=== PATIENT | female | born 1980 | race Caucasian/White ===

== ENCOUNTER 2019-04-15 08:59 | Emergency (ER) | payer SELFPAY ==
[~2019-04-15] VITALS: Ht 162.6 cm; Wt 54.4 kg
[2019-04-15 09:03] VITALS: BP 98/61
[2019-04-15] MEDS ORDERED: SULF1TAB24 PO (09:55)
[2019-04-15] MEDS ORDERED: ACET-704 PO (09:55)
--- NOTE | 2019-04-15 09:55 | PHYS DOC ---
Past Medical History Past Medical History: Other Additional Past Medical Histor: "GETS BOILS" Past Surgical History: Tubal ligation, Other Additional Past Surgical Histo: COLPOSCOPY Alcohol Use: Rarely Drug Use: None Adult General Chief Complaint Chief Complaint: ABSCESS HPI HPI Patient is a 38-year-old female who presents with complaint of tender, swollen area on her right upper back that she states is an abscess. Patient states has been getting purulent drainage from the area for the last few days but she has not been able to get any out for the last 24 hours. She denies any fever. She states that is just not getting any better and she is having a lot of pain as sociated with it. She rates pain 8 out of 10.[] Review of Systems Review of Systems Constitutional: Denies fever or chills [] Respiratory: Denies cough or shortness of breath [] Cardiovascular: No additional information not addressed in HPI [] Integument: Positive abscess[] Current Medications Current Medications Current Medications Medications (Trade) Dose Ordered Sig/Arun Start Time Stop Time Status Last Admin Dose Admin Clindamycin Phosphate (Cleocin Im) 600 mg 1X ONCE 04/15/19 10:00 04/15/19 10:01 DC 04/15/19 09:52 600 MG Allergies Allergies Allergies Coded Allergies Type Severity Reaction Last Updated Verified amoxicillin Allergy Intermediate RASH,HANDS SWELL 04/15/19 Yes Physical Exam Physical Exam Constitutional: Well developed, well nourished, no acute distress, non-toxic appearance. [] Cardiovascular:Heart rate regular rhythm, no murmur [] Lungs & Thorax: Bilateral breath sounds clear to auscultation [] Skin: Right upper back demonstrates tender, swollen, indurated area with surrounding erythema to the right upper back, measuring approximately 4 cm in diameter, consistent with abscess. [] Neurologic: Alert and oriented X 3, no focal deficits noted. [] Current Patient Data Vital Signs Vital Signs Date Time Temp Pulse Resp B/P (MAP) Pulse Ox O2 Delivery O2 Flow Rate FiO2 04/15/19 09:03 98.2 82 16 98/61 (73) 98 Room Air 98.2 EKG EKG [] Radiology/Procedures Radiology/Procedures [] Course & Med Decision Making Course & Med Decision Making Pertinent Labs and Imaging studies reviewed. (See chart for details) Abscess Incision and Drainage with irrigation by me: Location: Right upper back Anesthesia: Local 1% Lidocaine Technique: Irrigated. Disrupted loculations w/ instrumentation Packing: None Complications: Neurovascularly intact post procedure 48 hour wound check. Scar minimization instructions given. Fabián Disclaimer Fabián Disclaimer This electronic medical record was generated, in whole or in part, using a voice recognition dictation system. Departure Departure Impression: Primary Impression: Abscess Disposition: HOME, SELF-CARE Condition: STABLE Referrals: NO PCP (PCP) Patient Instructions: Abscess Scripts Acetaminophen With Codeine (TYLENOL WITH CODEINE #3 TABLET) 1 Each Tablet 1 TAB PO PRN Q6HRS PRN for PAIN, #12 TAB Prov: XIMENA WATSON Jr. DO 04/15/19 Sulfamethoxazole/Trimethoprim (BACTRIM DS TABLET) 1 Each Tablet 1 TAB PO BID for 10 Days, #20 TAB 0 Refills Prov: XIMENA WATSON Jr. DO 04/15/19 XIMENA WATSON Jr. DO Apr 15, 2019 09:55
[2019-04-15] MEDS ORDERED: CLINDAMYCIN IM 600 MG/4 ML VIAL. IM ONE (10:00)
== END 2019-04-15 10:21 | disposition home or self-care (01) ==
LOC: ER 08:59
DX: L02.212 Cutaneous abscess of back [any part, except buttock and flank] (principal); Z88.1 Allergy status to other antibiotic agents
CPT/HCPCS: 10060; 96372; 99283; J3490